=== PATIENT | female | born 1960 | race Caucasian/White ===

== ENCOUNTER 2017-06-23 05:28 | Inpatient (IN) | payer MEDICARE, OTHER ==
[~2017-06-23] VITALS: Ht 157.5 cm; Wt 144.5 kg
[~2017-06-23 05:28] MED LIST: BACL20TA PO; BUSP10TA PO; CITA40TA12 PO; FLUT9.9S NS; FURO-92 PO; HYDR-3245 PO; KENALOG CREAM TP; LEVO25CA2 PO; POTA20PA25 PO; TORADOL PO
[2017-06-23] MEDS ORDERED: KETOROLAC 60 MG/2 ML ONE (06:21)
[2017-06-23] MEDS ORDERED: TRANEXAMIC ACID 100 MG/ML, 10ML ONE ×5 (06:21→08:34)
[2017-06-23] MEDS ORDERED: VANCOMYCIN 1,000 MG ONE ×2 (06:22→07:20)
[2017-06-23] MEDS ORDERED: SODIUM CHLORIDE 0.9% 0 ML ONE (06:22)
[2017-06-23] MEDS ORDERED: ROPIvacaine/PF 0.2%, 20 ML ONE (06:22)
[2017-06-23] MEDS ORDERED: EPINEPHRINE 1 MG/ML, 1ML ONE (06:22)
[2017-06-23] MEDS ORDERED: VANCOMYCIN PER PHARMACY MC PRN ×2 (06:30→07:30)
[2017-06-23] MEDS ORDERED: VANCOMYCIN 1,900 MG in SODIUM CHLORIDE 0.9% 250 ML IV ONE (06:30)
[2017-06-23] MEDS ORDERED: HYDROmorphone 1 MG/ML, 1ML ONE (06:41)
[2017-06-23] MEDS ORDERED: BUPIVACAINE/PF 0.5% ONE (06:41)
[2017-06-23] MEDS ORDERED: MIDAZOLAM 1 MG/ML, 2ML ONE ×2 (06:41→13:04)
[2017-06-23] MEDS ORDERED: FENTANYL PF 100 MCG/2ML ONE ×3 (06:41→12:06)
[2017-06-23] MEDS ORDERED: OxyconTIN ER 10 MG TAB.ER ONE (06:54)
[2017-06-23] MEDS ORDERED: OxyconTIN ER 10 MG TAB.ER PO ONE (07:05)
[2017-06-23] MEDS ORDERED: LACTATED RINGERS 1,000 ML IV SCH (07:09)
[2017-06-23 07:14] VITALS: BP 142/86
[2017-06-23] MEDS: NS + 20MEQ KCL 1,000 ML IV SCH ×2 (07:15→17:03)
[2017-06-23] MEDS ORDERED: ONDANSETRON 4 MG TABLET PO PRN (07:30)
[2017-06-23] MEDS ORDERED: DIAZEPAM 5 MG TABLET PO PRN (07:30)
[2017-06-23] MEDS ORDERED: HYDROmorphone 1 MG/ML, 1ML IV PRN (07:30)
[2017-06-23] MEDS ORDERED: DIPHENHYDRAMINE 50 MG CAPSULE PO PRN (07:30)
[2017-06-23] MEDS ORDERED: ONDANSETRON 2MG/ML, 2ML IV PRN (07:30)
[2017-06-23] MEDS ORDERED: ROCURONIUM 10 MG/ML ONE (07:45)
[2017-06-23] MEDS ORDERED: PROPOFOL 10 MG/ML, 20ML ONE (07:45)
[2017-06-23] MEDS ORDERED: SUCCINYLCHOLINE 20 MG/ML, 10ML ONE (07:45)
[2017-06-23] MEDS ORDERED: ONDANSETRON 2MG/ML, 2ML ONE (07:45)
[2017-06-23] MEDS ORDERED: GLYCOPYRROLATE 0.2MG/1ML, 5ML ONE (07:45)
[2017-06-23] MEDS ORDERED: CEFAZOLIN 1,000 MG ONE (07:45)
[2017-06-23] MEDS ORDERED: NEOSTIGMINE 1 MG/ML, 10ML ONE (07:45)
[2017-06-23] MEDS ORDERED: LABETALOL 5MG/ML, 20ML IV PRN (09:30)
[2017-06-23] MEDS ORDERED: OXYcodone 5 MG/5 ML ORAL.SOL UDC PO PRN (09:30)
[2017-06-23] MEDS ORDERED: ACETAMINOPHEN 325 MG TABLET PO PRN (09:30)
[2017-06-23] MEDS ORDERED: ONDANSETRON 2MG/ML, 2ML IVPush PRN (09:30)
[2017-06-23] MEDS ORDERED: hydrALAzine 20 MG/ML, 1ML IV PRN (09:30)
[2017-06-23] MEDS ORDERED: METOCLOPRAMIDE 5 MG/ML, 2ML IV PRN (09:30)
[2017-06-23 10:35] LABS: CELLS COUNTED 211; DILUTION 20; WBC SQUARES COUNTED 1
[2017-06-23] MEDS ORDERED: HYDROmorphone 2 MG/ML, 1ML ONE (12:06)
[2017-06-23] MEDS ORDERED: ACETAMINOPHEN 650 MG/20.3 ML UDC ONE (12:06)
[2017-06-23] MEDS ORDERED: OXYcodone 5 MG/5 ML ORAL.SOL UDC ONE (12:06)
[2017-06-23] MEDS: FENTANYL PF 100 MCG/2ML IV PRN ×2 (12:13→12:26)
[2017-06-23] MEDS ORDERED: LABETALOL 5MG/ML, 20ML ONE (12:19)
[2017-06-23] MEDS: HYDROmorphone 1 MG/ML, 1ML IV PRN ×4 (12:24→12:53)
[2017-06-23] MEDS ORDERED: hydrALAzine 20 MG/ML, 1ML ONE (12:45)
[2017-06-23] MEDS ORDERED: MIDAZOLAM 1 MG/ML, 2ML IVPush PRN (13:30)
[2017-06-23] MEDS: OXYcodone IR 5MG TABLET PO PRN ×2 (14:28→20:27)
[2017-06-23] MEDS: LORazepam 1MG TABLET PO PRN (14:28)
[2017-06-23] MEDS ORDERED: PHARMACOKINETIC MONITORING MC PRN (14:30)
[2017-06-23] MEDS ORDERED: CEFAZOLIN PMX 2GM/50ML 50 ML IVPB SCH (15:00)
[2017-06-23] MEDS ORDERED: HYDROmorphone PCA 30 MG/30 ML IV PRN (16:30)
[2017-06-23] MEDS: ASPIRIN 81 MG TABLET EC PO SCH (17:54)
[2017-06-23] MEDS: TAMSULOSIN 0.4 MG CAP.ER.24H PO SCH (17:54)
[2017-06-23] MEDS ORDERED: CEFTRIAXONE PMX 2GM/50ML 50 ML IV SCH (21:00)
[2017-06-24] MEDS: OXYcodone IR 5MG TABLET PO PRN ×4 (00:31→15:38)
[2017-06-24] MEDS: ACETAMINOPHEN 650 MG/20.3 ML UDC PO PRN ×2 (00:31→06:51)
[2017-06-24] MEDS ORDERED: VANCOMYCIN 1,700 MG in SODIUM CHLORIDE 0.9% 250 ML IV SCH (01:00)
[2017-06-24] MEDS: NS + 20MEQ KCL 1,000 ML IV SCH ×3 (02:25→20:47)
[2017-06-24 03:58] VITALS: BP 109/60
[2017-06-24 05:58] LABS: HEMATOCRIT 27.8 % (34.6-47.8); HEMOGLOBIN 9.3 g/dL (11.7-16.4); WHITE BLOOD COUNT 7.4 x10^3/uL (3.4-10)
[2017-06-24] MEDS ORDERED: DEXAMETHASONE 4 MG/ML, 1ML IVPush SCH (06:00)
[2017-06-24] MEDS ORDERED: ASPIRIN 81 MG TABLET EC PO SCH (06:00)
[2017-06-24 06:06] LABS: BLOOD UREA NITROGEN 11 mg/dL (7-18)
[2017-06-24] MEDS: ASPIRIN 81 MG TABLET EC PO SCH ×2 (06:36→18:13)
[2017-06-24] MEDS: KETOROLAC 30 MG/1 ML IV SCH ×3 (07:50→23:41)
[2017-06-24] MEDS: TAMSULOSIN 0.4 MG CAP.ER.24H PO SCH (08:37)
[2017-06-24] MEDS: LORazepam 1MG TABLET PO PRN (11:06)
[2017-06-24] MEDS: CEFTAROLINE 600 MG in SODIUM CHLORIDE 0.9% 100 ML IV SCH ×2 (12:10→23:41)
[2017-06-24 12:32] LABS: BLOOD UREA NITROGEN 10 mg/dL (7-18)
[2017-06-24 12:33] LABS: ASPARTATE AMINO TRANSFERASE 10 U/L (15-37)
[2017-06-24 15:40] VITALS: BP 124/60
[2017-06-24 20:20] VITALS: BP 117/55
[2017-06-25] MEDS: NS + 20MEQ KCL 1,000 ML IV SCH ×2 (05:07→15:27)
[2017-06-25 05:08] VITALS: BP 133/65
[2017-06-25 06:17] LABS: HEMOGLOBIN 7.9 g/dL (11.7-16.4); WHITE BLOOD COUNT 4.5 x10^3/uL (3.4-10)
[2017-06-25] MEDS ORDERED: HYDROmorphone 1 MG/ML, 1ML IV PRN (06:30)
[2017-06-25 06:58] LABS: BLOOD UREA NITROGEN 12 mg/dL (7-18)
[2017-06-25 08:16] VITALS: BP 130/69
[2017-06-25] MEDS: TAMSULOSIN 0.4 MG CAP.ER.24H PO SCH (09:10)
[2017-06-25] MEDS: BACLOFEN 10 MG TABLET PO SCH ×3 (09:10→21:34)
[2017-06-25] MEDS: ASPIRIN 81 MG TABLET EC PO SCH ×2 (09:11→18:03)
[2017-06-25] MEDS: HYDROcodone/APAP 10/325 MG TABLET PO PRN ×3 (09:29→23:25)
[2017-06-25] MEDS: LORazepam 1MG TABLET PO PRN (09:29)
[2017-06-25] MEDS: CEFTAROLINE 600 MG in SODIUM CHLORIDE 0.9% 100 ML IV SCH (12:40)
[2017-06-25] MEDS: OXYcodone IR 5MG TABLET PO PRN ×2 (12:40→18:05)
[2017-06-25 14:46] VITALS: BP 155/79
[2017-06-25 18:49] VITALS: BP 135/5
[2017-06-26 00:27] VITALS: BP 157/91
[2017-06-26] MEDS: LORazepam 1MG TABLET PO PRN ×2 (00:30→09:27)
[2017-06-26] MEDS: NS + 20MEQ KCL 1,000 ML IV SCH ×4 (00:37→22:30)
[2017-06-26] MEDS: CEFTAROLINE 600 MG in SODIUM CHLORIDE 0.9% 100 ML IV SCH ×2 (01:03→12:53)
[2017-06-26 04:54] VITALS: BP 131/70
[2017-06-26] MEDS: HYDROcodone/APAP 10/325 MG TABLET PO PRN ×4 (05:33→21:37)
[2017-06-26] MEDS: ASPIRIN 81 MG TABLET EC PO SCH ×2 (06:06→15:48)
[2017-06-26 06:58] VITALS: BP 144/73
[2017-06-26 08:41] LABS: HEMATOCRIT 24.3 % (34.6-47.8); HEMOGLOBIN 8.2 g/dL (11.7-16.4); WHITE BLOOD COUNT 3.5 x10^3/uL (3.4-10)
[2017-06-26] MEDS: BACLOFEN 10 MG TABLET PO SCH ×3 (08:57→21:37)
[2017-06-26] MEDS: TAMSULOSIN 0.4 MG CAP.ER.24H PO SCH (08:57)
[2017-06-26 13:36] VITALS: BP 123/58
[2017-06-26] MEDS ORDERED: FLUTICASONE NASAL SPRAY 16GM NAS PRN (17:00)
[2017-06-26] MEDS ORDERED: FUROSEMIDE 40 MG TABLET PO PRN (17:00)
[2017-06-26] MEDS: BUSPIRONE 10 MG TABLET PO SCH (21:37)
[2017-06-26 21:55] VITALS: BP 156/83
[2017-06-27] MEDS: CEFTAROLINE 600 MG in SODIUM CHLORIDE 0.9% 100 ML IV SCH ×2 (01:16→12:09)
[2017-06-27 01:19] VITALS: BP 146/80
[2017-06-27] MEDS: HYDROcodone/APAP 10/325 MG TABLET PO PRN ×4 (02:24→18:19)
[2017-06-27] MEDS: ASPIRIN 81 MG TABLET EC PO SCH ×2 (06:14→18:19)
[2017-06-27] MEDS: LEVOTHYROXINE 25 MCG TABLET PO SCH (06:14)
[2017-06-27] MEDS: NS + 20MEQ KCL 1,000 ML IV SCH ×3 (06:15→22:30)
[2017-06-27] MEDS: BUSPIRONE 10 MG TABLET PO SCH ×3 (08:36→20:17)
[2017-06-27] MEDS: CITALOPRAM 20 MG TABLET PO SCH (08:36)
[2017-06-27] MEDS: BACLOFEN 10 MG TABLET PO SCH ×3 (08:36→20:17)
[2017-06-27] MEDS: TAMSULOSIN 0.4 MG CAP.ER.24H PO SCH (08:36)
[2017-06-27 08:47] VITALS: BP 115/56
[2017-06-27 12:53] VITALS: BP 137/58
[2017-06-27] MEDS: LORazepam 1MG TABLET PO PRN (13:22)
[2017-06-27 21:12] VITALS: BP 106/59
[2017-06-28] MEDS: CEFTAROLINE 600 MG in SODIUM CHLORIDE 0.9% 100 ML IV SCH ×2 (00:12→13:47)
[2017-06-28 00:20] VITALS: BP 158/86
[2017-06-28] MEDS: HYDROcodone/APAP 10/325 MG TABLET PO PRN ×2 (04:17→09:56)
[2017-06-28] MEDS: LEVOTHYROXINE 25 MCG TABLET PO SCH (06:10)
[2017-06-28] MEDS: ASPIRIN 81 MG TABLET EC PO SCH ×2 (06:10→17:18)
[2017-06-28] MEDS: NS + 20MEQ KCL 1,000 ML IV SCH ×3 (06:14→22:30)
[2017-06-28] MEDS ORDERED: BISACODYL 10 MG SUPP PR PRN ×3 (07:30→17:00)
[2017-06-28 08:30] VITALS: BP 104/70
[2017-06-28] MEDS: TAMSULOSIN 0.4 MG CAP.ER.24H PO SCH (09:00)
[2017-06-28] MEDS: BUSPIRONE 10 MG TABLET PO SCH ×3 (09:13→20:58)
[2017-06-28] MEDS: BACLOFEN 10 MG TABLET PO SCH ×3 (09:13→20:58)
[2017-06-28] MEDS: CITALOPRAM 20 MG TABLET PO SCH (09:13)
[2017-06-28 13:48] VITALS: BP 109/58
[2017-06-28] MEDS: OXYcodone IR 5MG TABLET PO PRN ×2 (13:56→20:58)
[2017-06-28] MEDS ORDERED: ACETAMINOPHEN 650 MG/20.3 ML UDC PO PRN ×2 (17:00)
[2017-06-28] MEDS ORDERED: HYDROmorphone 1 MG/ML, 1ML IV PRN ×4 (17:00)
[2017-06-28] MEDS ORDERED: ONDANSETRON 2MG/ML, 2ML IV PRN ×2 (17:00)
[2017-06-28] MEDS ORDERED: DIAZEPAM 5 MG TABLET PO PRN (17:00)
[2017-06-28] MEDS ORDERED: FUROSEMIDE 40 MG TABLET PO PRN (17:00)
[2017-06-28] MEDS ORDERED: ONDANSETRON 4 MG TABLET PO PRN (17:00)
[2017-06-28] MEDS ORDERED: DIPHENHYDRAMINE 50 MG CAPSULE PO PRN ×2 (17:00)
[2017-06-28] MEDS ORDERED: FLUTICASONE NASAL SPRAY 16GM NAS PRN ×2 (17:00)
[2017-06-28 19:30] VITALS: BP 117/89
[2017-06-28] MEDS: DIAZEPAM 5 MG TABLET PO PRN (22:17)
[2017-06-29] MEDS: HYDROcodone/APAP 10/325 MG TABLET PO PRN ×6 (00:07→22:26)
[2017-06-29] MEDS: CEFTAROLINE 600 MG in SODIUM CHLORIDE 0.9% 100 ML IV SCH ×2 (00:08→12:26)
[2017-06-29 02:47] VITALS: BP 117/76
[2017-06-29] MEDS: ASPIRIN 81 MG TABLET EC PO SCH ×2 (06:02→17:14)
[2017-06-29] MEDS: LEVOTHYROXINE 25 MCG TABLET PO SCH (06:02)
[2017-06-29] MEDS: NS + 20MEQ KCL 1,000 ML IV SCH ×3 (06:30→22:30)
[2017-06-29 08:17] VITALS: BP 113/72
[2017-06-29] MEDS: TAMSULOSIN 0.4 MG CAP.ER.24H PO SCH (09:00)
[2017-06-29] MEDS: BUSPIRONE 10 MG TABLET PO SCH ×3 (09:20→21:12)
[2017-06-29] MEDS: CITALOPRAM 20 MG TABLET PO SCH (09:20)
[2017-06-29] MEDS: BACLOFEN 10 MG TABLET PO SCH ×3 (09:21→21:12)
[2017-06-29] MEDS ORDERED: POLYETHYLENE GLYCOL 17 GM PACKET PO PRN (11:30)
[2017-06-29 12:44] VITALS: BP 101/65
[2017-06-29] MEDS: FUROSEMIDE 40 MG TABLET PO PRN (14:00)
[2017-06-29 19:25] VITALS: BP 102/67
[2017-06-30] MEDS: HYDROcodone/APAP 10/325 MG TABLET PO PRN ×5 (02:38→21:18)
[2017-06-30 02:41] VITALS: BP 110/70
[2017-06-30] MEDS: LEVOTHYROXINE 25 MCG TABLET PO SCH (06:26)
[2017-06-30] MEDS: ASPIRIN 81 MG TABLET EC PO SCH ×2 (06:26→17:13)
[2017-06-30] MEDS: NS + 20MEQ KCL 1,000 ML IV SCH ×3 (06:30→21:18)
[2017-06-30 07:03] LABS: ASPARTATE AMINO TRANSFERASE 11 U/L (15-37); BLOOD UREA NITROGEN 16 mg/dL (7-18)
[2017-06-30 07:08] LABS: HEMOGLOBIN 8.8 g/dL (11.7-16.4); WHITE BLOOD COUNT 4.6 x10^3/uL (3.4-10)
[2017-06-30] MEDS: TAMSULOSIN 0.4 MG CAP.ER.24H PO SCH (09:00)
[2017-06-30 09:12] VITALS: BP 118/75
[2017-06-30] MEDS: BUSPIRONE 10 MG TABLET PO SCH ×3 (09:41→21:18)
[2017-06-30] MEDS: CITALOPRAM 20 MG TABLET PO SCH (09:42)
[2017-06-30] MEDS: BACLOFEN 10 MG TABLET PO SCH ×3 (09:42→21:18)
[2017-06-30] MEDS: CEFTAROLINE 600 MG in SODIUM CHLORIDE 0.9% 100 ML IV SCH ×3 (11:49→23:31)
[2017-06-30 13:48] VITALS: BP 137/72
[2017-06-30 20:16] VITALS: BP 111/71
[2017-07-01] MEDS: HYDROcodone/APAP 10/325 MG TABLET PO PRN ×5 (01:13→20:13)
[2017-07-01 03:00] VITALS: BP 121/75
[2017-07-01] MEDS: NS + 20MEQ KCL 1,000 ML IV SCH ×3 (05:26→22:22)
[2017-07-01] MEDS: ASPIRIN 81 MG TABLET EC PO SCH ×2 (05:26→17:04)
[2017-07-01] MEDS: LEVOTHYROXINE 25 MCG TABLET PO SCH (05:26)
[2017-07-01 07:58] VITALS: BP 127/74
[2017-07-01] MEDS: TAMSULOSIN 0.4 MG CAP.ER.24H PO SCH (09:00)
[2017-07-01] MEDS: BUSPIRONE 10 MG TABLET PO SCH ×3 (10:14→20:15)
[2017-07-01] MEDS: CITALOPRAM 20 MG TABLET PO SCH (10:14)
[2017-07-01] MEDS: BACLOFEN 10 MG TABLET PO SCH ×3 (10:14→20:15)
[2017-07-01] MEDS: CEFTAROLINE 600 MG in SODIUM CHLORIDE 0.9% 100 ML IV SCH (12:13)
[2017-07-01 14:22] VITALS: BP 103/70
[2017-07-01] MEDS: FUROSEMIDE 40 MG TABLET PO PRN (17:02)
[2017-07-01 20:15] VITALS: BP 106/56
[2017-07-02] MEDS: CEFTAROLINE 600 MG in SODIUM CHLORIDE 0.9% 100 ML IV SCH ×2 (00:25→12:45)
[2017-07-02] MEDS: HYDROcodone/APAP 10/325 MG TABLET PO PRN ×5 (00:25→20:51)
[2017-07-02 04:00] VITALS: BP 120/63
[2017-07-02] MEDS: ASPIRIN 81 MG TABLET EC PO SCH ×2 (05:10→17:50)
[2017-07-02] MEDS: LEVOTHYROXINE 25 MCG TABLET PO SCH (05:11)
[2017-07-02] MEDS: NS + 20MEQ KCL 1,000 ML IV SCH ×3 (05:11→22:02)
[2017-07-02 07:30] VITALS: BP 115/57
[2017-07-02] MEDS: CITALOPRAM 20 MG TABLET PO SCH (08:41)
[2017-07-02] MEDS: BUSPIRONE 10 MG TABLET PO SCH ×3 (08:42→20:51)
[2017-07-02] MEDS: BACLOFEN 10 MG TABLET PO SCH ×3 (08:42→20:51)
[2017-07-02] MEDS: TAMSULOSIN 0.4 MG CAP.ER.24H PO SCH (08:43)
[2017-07-02 14:30] VITALS: BP 105/52
[2017-07-02 20:09] VITALS: BP 118/59
[2017-07-02] MEDS: DIAZEPAM 5 MG TABLET PO PRN (23:39)
[2017-07-03] MEDS: CEFTAROLINE 600 MG in SODIUM CHLORIDE 0.9% 100 ML IV SCH ×2 (00:16→11:46)
[2017-07-03 00:59] VITALS: BP 123/63
[2017-07-03] MEDS: HYDROcodone/APAP 10/325 MG TABLET PO PRN ×4 (01:03→14:02)
[2017-07-03] MEDS: NS + 20MEQ KCL 1,000 ML IV SCH (04:24)
[2017-07-03] MEDS: LEVOTHYROXINE 25 MCG TABLET PO SCH (05:23)
[2017-07-03] MEDS: ASPIRIN 81 MG TABLET EC PO SCH (05:23)
[2017-07-03] MEDS: DIAZEPAM 5 MG TABLET PO PRN ×2 (06:22→14:15)
[2017-07-03 06:29] VITALS: BP 115/55
[2017-07-03] MEDS: BUSPIRONE 10 MG TABLET PO SCH (09:10)
[2017-07-03] MEDS: FUROSEMIDE 40 MG TABLET PO PRN (09:11)
[2017-07-03] MEDS: BACLOFEN 10 MG TABLET PO SCH (09:11)
[2017-07-03] MEDS: CITALOPRAM 20 MG TABLET PO SCH (09:11)
[2017-07-03] MEDS: TAMSULOSIN 0.4 MG CAP.ER.24H PO SCH (09:11)
[2017-07-03 12:44] VITALS: BP 115/55
== END 2017-07-03 15:15 | DRG 463 ==
LOC: ORIP 05:28 → CCU 13:48 → 3NE 06-24 18:55 → 4NOR 06-25 18:34
PROVIDERS: ADMIT Orthopaedic Surgery; ATTEND Orthopaedic Surgery
PROC: 0KU Muscles, Supplement (ICD-10-PCS; 2017-06-23)
PROC: 5A09457 Assistance with Respiratory Ventilation, 24-96 Consecutive Hours, Continuous Positive Airway Pressure (ICD-10-PCS; 2017-06-23)
PROC: 0SHC08Z Insertion of Spacer into Right Knee Joint, Open Approach (ICD-10-PCS; principal; 2017-06-23 07:45)
PROC: 0SPC0JZ Removal of Synthetic Substitute from Right Knee Joint, Open Approach (ICD-10-PCS; 2017-06-23 07:45)
DX: T84.53XA Infection and inflammatory reaction due to internal right knee prosthesis, initial encounter (principal); J96.20 Acute and chronic respiratory failure, unspecified whether with hypoxia or hypercapnia; Z68.43 Body mass index [BMI] 50.0-59.9, adult; E66.01 Morbid (severe) obesity due to excess calories; T84.032A Mechanical loosening of internal right knee prosthetic joint, initial encounter; I10 Essential (primary) hypertension; Z88.8 Allergy status to other drugs, medicaments and biological substances; F32.9 Major depressive disorder, single episode, unspecified; E03.9 Hypothyroidism, unspecified; G47.33 Obstructive sleep apnea (adult) (pediatric); M19.90 Unspecified osteoarthritis, unspecified site; R33.9 Retention of urine, unspecified; Y83.1 Surgical operation with implant of artificial internal device as the cause of abnormal reaction of the patient, or of later complication, without mention of misadventure at the time of the procedure; Z86.14 Personal history of Methicillin resistant Staphylococcus aureus infection; Z87.891 Personal history of nicotine dependence
CPT/HCPCS: 36415; 71010; 80048; 80053; 82040; 85025; 85651; 86140; 86850; 86900; 87015; 87070; 87075; 87077; 87081; 87102; 87116; 87186; 87205; 87206; 89051; 94660; C1713; C1729; J0171; J0690; J0696; J0712; J1100; J1170; J1885; J2250; J2405; J2704; J2710; J2795; J3010; J3370; J3480; J3490; J0330; J0360; J7050; J7120

== ENCOUNTER 2017-07-30 11:25 | Emergency (ER) | payer MEDICARE, OTHER ==
[~2017-07-30] VITALS: Ht 157.5 cm; Wt 131.0 kg
[2017-07-30 11:39] VITALS: BP 128/42
[2017-07-30] MEDS ORDERED: HYDROcodone/APAP 10/325 MG TABLET ONE (12:45)
[2017-07-30] MEDS ORDERED: HYDROcodone/APAP 10/325 MG TABLET PO PRN (13:00)
== END 2017-07-30 13:59 | disposition home or self-care (01) ==
LOC: ED 11:31
DX: Z45.2 Encounter for adjustment and management of vascular access device (principal); L08.9 Local infection of the skin and subcutaneous tissue, unspecified
CPT/HCPCS: 99284